=== PATIENT | female | born 1965 | race Caucasian/White ===

== ENCOUNTER 2021-04-29 21:53 | Emergency (ER) | payer OTHER ==
[~2021-04-29] VITALS: Ht 177.8 cm; Wt 72.6 kg
[~2021-04-29 21:53] MED LIST: MECLIZINE HCL25 M1 PO
[2021-04-29] MEDS ORDERED: PROAIR HFA8.5 GM INH ×2 (22:02→23:11)
[2021-04-29] MEDS ORDERED: PREDNISONE 20 M20 MG PO (23:11)
[2021-04-29] MEDS ORDERED: ALBUTEROL2.5 MG/31 INH (23:11)
[2021-04-29 23:16] VITALS: BP 125/71
== END 2021-04-29 23:25 | disposition home or self-care (01) ==
LOC: ER 21:53
DX: J45.901 Unspecified asthma with (acute) exacerbation (principal); Z20.822 Contact with and (suspected) exposure to COVID-19; R06.00 Dyspnea, unspecified; Z90.49 Acquired absence of other specified parts of digestive tract; Z79.899 Other long term (current) drug therapy